=== PATIENT | male | born 1970 | race African-American/Black ===

== ENCOUNTER 2018-02-04 04:35 | Emergency (ER) | payer OTHER ==
[~2018-02-04] VITALS: Ht 160 cm; Wt 62.0 kg
[2018-02-04 04:43] VITALS: BP 121/78; PULSE 58; RESP 16; TEMP 98.5; O2SAT 99
[2018-02-04] MEDS ORDERED: VENTAER INH (04:53)
[2018-02-04] MEDS ORDERED: TETANUS/DIPHTHERIA TOXOID ADULT 0.5 ML VIAL IM ONE (05:00)
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
== END 2018-02-04 05:15 ==
LOC: NEPD 04:35
DX: S01.01XA Laceration without foreign body of scalp, initial encounter (principal); S00.81XA Abrasion of other part of head, initial encounter; J45.909 Unspecified asthma, uncomplicated; E11.9 Type 2 diabetes mellitus without complications; I10 Essential (primary) hypertension; Z72.0 Tobacco use; Z88.0 Allergy status to penicillin; Y09 Assault by unspecified means; Z02.89 Encounter for other administrative examinations; Z23 Encounter for immunization
CPT/HCPCS: 90471; 90714